=== PATIENT | female | born 1995 | race Caucasian/White ===

== ENCOUNTER 2025-02-12 17:03 | Emergency (ER) | payer SELFPAY ==
--- OUTSIDE RECORDS SUMMARY | 2025-02-12 17:06 | XMS_ITS | Clinical Summary ---
Author Organization [facility] Address [address] [place] [address] Care Team Providers Care Marketing Project Specialist Name Role Phone Lynne Jarquin Primary Care Provider Jose Elias Cochran MD Unavailable + [phone] Allergies No known active allergies Medications No known medications Active Problems Problem Noted Date Diagnosed Date Cyst of right Bartholin's gland 03/17/2023 Surgical History Surgery Date Site/Laterality Comments TONSILLECTOMY Medical History Medical History Date Comments Supervision of high-risk High-risk - (Added by TW Conv) Maternal care for (suspected ) abnormality and damage, unspecified, not applicable or unspecified abnormality affecting management of mother, antepartum condition or complication - (Added by TW Conv) Anxiety Social History Tobacco Use Types Packs/Day Years Used Date Smoking Tobacco: Never Smokeless Tobacco: Never Tobacco Cessation:Counseling Given: Not Answered AUDIT-C Answer Date Recorded Frequency of Alcohol Consumption Not on file 03/19/2023 Q2: How many drinks containi ng alcohol do you have on a typical day when you are drinking? Patient does not drink Frequency of Binge Drinking Not on file 03/09 Personal Safety Answer Date Recorded Have you ever been in or are you currently in a harmful physical or emotional relationship or is someone making you feel afraid or unsafe? Denies 03/27/2023 Comments No Sex and Gender Information Value Date Recorded Sex Assigned at Not on file Legal Sex Female 7:22 PM BEEF RIBBER Gender Identity Not on file Sexual Orientation Not on file Last Filed Vital Signs Vital Sign Reading Time Taken Comments Blood Pressure 109/60 03/27/2023 10:08 AM BEEF RIBBER Pulse 52 03/27/2023 10:08 AM BEEF RIBBER Temperature 36.3 C (97.4 F) 03/27/2023 9:40 AM BEEF RIBBER Respiratory Rate 20 03/27/2023 10:0 8 AM BEEF RIBBER Oxygen Saturation 99% 03/27/2023 10: 08 AM BEEF RIBBER Inhaled Oxygen Concentration - - Weight 110.7 kg (244 lb 0.8 oz) 03/27/2023 6:42 AM BEEF RIBBER Height 160 cm (5' 3) 03/27/2023 6:42 AM BEEF RIBBER Body Mass Index 43.23 03/27/2023 6:42 AM BEEF RIBBER Plan of Treatment Health Maintenance Due Date Last Done Comments Cervical Cancer Screening 1994 Depression Screening 1994 Hepatitis C Screening 1994 Varicella Vaccines (2 of 2 - 2-dose childhood series) 1998 11/27/1997 Regular Well Visit/Exam 18-64 2012 DTaP/Tdap/Td Vaccine (7 - Td or Tdap) 10/20/2019 10/19/2009, 10/23/1999, 09/26/1997, Additional history exists HPV Vaccines (1 - 3-dose SCDM series) 2021 Covid-19 Vaccine (2024- season) 2024 11/26/2020, 11/05/2020 Influenza Vaccine (#1) 2024 Hepatitis B Screening Completed 11/06/1995 , 01/13/1995, 1994 Pneumococcal vaccine <65 Aged Out No longer eligible based on patient's age to complete this topic Insurance [employer] OOS Care Teams Marketing Project Specialist Relationship Specialty Start Date End Date Lynne Jarquin PCP - General 09/25/06 Jose Elias Rivera MD [address] [place] [address] [place] [address] Consulting Physician Obstetrics and Gynecology 03/27/23
--- OUTSIDE RECORDS SUMMARY | 2025-02-12 17:06 | XMS_ITS | Data Portability ---
Author Organization [facility] Address [id number] [place] [id number] Care Team Providers Care Financing Analyst Name Role Phone ROLANDO ROSARIO Referring Provider [phone] Assessment No assessment recorded. Plan of Treatment Reminders Order Date Submit Date Provider Last Modified By Organization Details Last Modified Time Details Appointments None record ed. Lab None record ed. Referral None record ed. Procedures None record ed. Surgeries None record ed. Imaging None record ed. Medication Orders None record ed. Patient TargetsNo targets recorded. Patient InstructionsNo instructions recorded. Reason for Referral None Reported. Procedures Surgical History Date Name Laterality Status Provider Name and Address Organization Details Recorded Time 10/21/2016 Sleep Study completed Tucker Dickson [address] [facility] [address], [place], [address], [facility] 11/09/2016 20:37:26 Imaging Results None recorded. Procedure Notes None recorded. Medical Equipment None Reported. Vitals None Recorded Social History None recorded. Functional Status None recorded. Mental Status None recorded. Family History Nothing Reported. Medical History No medical history recorded. Gynecological HistoryNo gynecological history recorded. Obstetrics History GPAL:G 0 P 0 0 0 0 Past Encounters Encounter ID Performer Location Encounter Start Date Encounter Closed Date Diagnosis/Indication Diagnosis SNOMED-CT Code Diagnosis ICD10 Code Diagnosis IMO Codes Diagnosis Note [id number] Tucker Dickson [facility] 11) [id number] [facility] [address] [place] [address] 10/21/2016 21:24:03 10/21/2016 21:28:21 Obstructive sleep apnea of adult 7492794362 103 G47.33 Health Concerns Section Related Observation LastModified by Organization Detai ls LastModified Time None Recorded Concern Status LastModified by Organization Details LastModified Time None Recorded Advance Directives Directive None Recorded Payers Insurance Date Sequence Insurance Name Policy Number Policy Parsons Covered Member ID Parsons Member ID Guarantor Name 10/17/2016 1 [employer] [id number] Alexandra Daniels [id number] Alexandra Daniels OBGyn Episode No OBEpisode recorded.
--- OUTSIDE RECORDS SUMMARY | 2025-02-12 17:06 | XMS_ITS | Clinical Summary ---
Author Organization [facility] Address [address] [place] [address] Phone Care Team Providers Care System Planning Engineer Name Role Phone Juan Murguia MD Primary Care Provider [phone] Allergies No known active allergies Medications fluticasone (FLONASE) 50 MCG/ACT SuspensionIndicat ions:UARS (upper airway resistance syndrome),Hypertr ophy of inferior nasal turbinate,PNAR (perennial non-allergic rhinitis) 2 sprays in each nostril once daily (best after shower/ bath) 3 Bottle 3 7 Active Additional Information Patient not taking.Reported on 10/06/2022 FLUoxetine (PROZAC) 40 MG CapsuleIndication s:Depression, unspecified depression type,Disturbed concentration Take 1 Cap by mouth daily. 90 Cap 8 Active Additional Information Patient not taking.Reported on 10/06/2022 FLUoxetine (PROZAC) 20 MG CapsuleIndication s:Depression, unspecified depression type,Disturbed concentration TAKE 1 CAPSULE BY MOUTH DAILY 30 Cap 9 Active Additional Information Patient not taking.Reported on 10/06/2022 naproxen (NAPROSYN) 500 MG Tablet Take 1 Tab by mouth 2 times daily (with meals). 30 Tab 0 Active Additional Information Patient not taking.Reported on 10/06/2022 Active Problems Problem Noted Date Diagnosed Date Ingrown right greater toenail 09/10/2017 Pain of right great toe 09/10/2017 Hypertrophy of inferior nasal turbinate 11/29/19 17 PNAR (perennial non-allergic rhinitis) 7 Laryngopharyngeal reflux 11/28/2016 Chronic adenotonsillitis 11/28/2016 Depression 11/06/2016 Anxiety 11/06/2016 Hypersomnia 11/05/2016 UARS (upper airway resistance syndrome) 11/06/19 17 Resolved Problems Problem Noted Date Diagnosed Date Resolved Date Tonsillar and adenoid hypertrophy 11/06/2016 12/23/2016 Tonsillith 11/06/2016 12/23/2016 Immunizations Immunization Administration Dates Next Due Covid-19, Mrna, Lnp-s, Pf, 3 0 Mcg/0.3 Ml Dose ([employer]) 11/26/2020,11/05/2020 DTAP VACCINE, UNSPECIFIED FORMULATION ,09/26/1997,11/06/1995,1995,01/13/1995 Hepatitis B Vaccine, Pediatric/adolescent 11/06/1995,01/13/1995,1994 Hib Vaccine,unspecified Formulation 09/07,11/06/1995,04/28/1995,1994 Inactivated Polio Vaccine 10/23/1999 MMR Vaccine 10/23/1999,10/13/1999,09/26/1997 OPV 11/06/1995,04/28/1995,01/13/1995 TDAP Vaccine 10/19/2009 Varicella Vaccine Live 11/27/1997 Family History Relation Name Status Comments Father Alive Mother Alive Social History Tobacco Use Types Packs/Day Years Used Date Smoking Tobacco: Never Smokeless Tobacco: Never Tobacco Cessation:Counseling Given: No Alcohol Use Standard Drinks/Week Comments No 0 (1 standard drink = 0.6 oz pur e alcohol) Sexually Active Control Partners Comments Yes Male Condom Comments No Sex and Gender Information Value Date Recorded Sex Assigned at Not on file Legal Sex Female 10:38 PM CDT Gender Identity Not on file Sexual Orientation Not on file 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 Not on file Not on file Not on file Last Filed Vital Signs Vital Sign Reading Time Taken Comments Blood Pressure 124/78 10/08/2022 4:28 PM CDT Pulse 58 10/08/2022 4:28 PM CDT Temperature 36.7 C (98 F) 10/08/2022 4:28 PM CDT Respiratory Rate 20 10/08/2022 4:28 PM CDT Oxygen Saturation 99% 10/08/2022 4:28 PM CDT Inhaled Oxygen Concentration - - Weight 114.3 kg (252 lb) 10/08/2022 4:28 PM CDT Height 160 cm (5' 3) 10/08/2022 4:28 PM CDT Body Mass Index 44.64 10/08/2022 4:28 PM CDT Plan of Treatment Health Maintenance Due Date Last Done Comments Hepatitis C Virus (HCV) Screening 1994 Varicella Immunization (2 of 2 - 2-dose childhood series) 1998 11/27/1997 Pap Smear 09/21/2015 DTaP/Tdap/Td Immunization (7 - Td or Tdap) 10/20/2019 10/19/2009, 10/23/1999, 09/26/1997, Additional history exists Human Papillomavirus (HPV) Immunization (1 - 3-dose SCDM series) 2021 Cervical Cancer Screening (CCS) 2024 HPV/Cotest 2024 Influenza Immunization (#1) 2024 SARS-COV-2 Immunization ( season) 2024 11/26/2020, 11/05/2020 Respiratory Syncytial Virus (RSV) Immunization (Adult) (1 - 1-dose 75+ series) 2069 Hepatitis B Immunization Completed 996, 01/13/1995, 1994 Meningococcal Immunization (ACWY) Aged Out No longer eligible based on patient's age to complete this topic Pneumococcal Immunization Combined Aged Out No longer eligible based on patient's age to complete this topic Rotavirus Immunization Aged Out No lo nger eligible based on patient's age to complete this topic Care Teams System Planning Engineer Relationship Specialty Start Date End Date Juan Murguia MD [address] [place] [address] PCP - General Family Medicine 03/16/23
[2025-02-12 17:09] VITALS: BP 135/72; PULSE 73; RESP 16; TEMP 37.3; O2SAT 100
--- NOTE | 2025-02-12 17:16 | ED_ITS ---
HPI - Female Genitourinary General Chief complaint: Urogenital-Female Stated complaint: Urinary Problem Time Seen by Provider: 02/12/25 17:18 Source: patient and RN notes reviewed Mode of arrival: ambulatory Limitations: no limitations History of Present Illness HPI Narrative: 29-year-old female presented for complaint of burning with urination and urinary pressure. Onset this morning. She took azo with some relief in the pressure. Denies hematuria, nausea, vomiting, abdominal pain, flank pain, constipation, diarrhea, fevers or chills. Related Data Allergies Allergy/AdvReac Type Severity Reaction Status Date / Time No Known Drug Allergies Allergy Unknown Unknown Verified 02/12/25 17:13 Review of Systems Review of Systems: CONSTITUTIONAL: Denies body aches, fever, chills, or sweats. CARDIOVASCULAR: Denies chest pain, palpitations, or edema. RESPIRATORY: Denies cough or dyspnea. GASTROINTESTINAL: Denies abdominal pain, nausea, vomiting, or diarrhea. GENITOURINARY: Reports dysuria, frequency, urgency, hematuria, denies flank pain, discharge SKIN: Denies rash, itching, or wounds. MUSCULOSKELETAL: Denies back pain or myalgia. PMFSH Comments At time of signature, I have reviewed and agree with nursing past medical, surgical, social and family history unless otherwise noted. Please see nursing chart for further information. There is no relevant family history pertinent to the presenting complaint Exam Narrative: GENERAL: Well-appearing and in no acute distress. ENT: Mucous membranes pink and moist. NECK: Normal AROM. Supple. CHEST: No respiratory distress. Clear to auscultation. HEART: Regular rate and rhythm. ABDOMEN: Soft, nontender, nondistended, normal active bowel sounds. No CVA tenderness SKIN: Warm, dry, no rash. NEURO: No focal deficits. Alert and oriented x3. Gait steady. PSYCH: Normal affect. Course Course Level of Care: Express Care Visit Vital Signs Vital signs: Vital Signs Temperature 99.2 F 02/12/25 17:09 Pulse Rate 73 02/12/25 17:09 Respiratory Rate 16 02/12/25 17:09 Blood Pressure 135/72 02/12/25 17:09 Pulse Oximetry 100 02/12/25 17:09 Oxygen Delivery Room Air 02/12/25 17:09 Temperature 99.2 F 02/12/25 17:09 Pulse Rate 73 02/12/25 17:09 Respiratory Rate 16 02/12/25 17:09 Blood Pressure 135/72 02/12/25 17:09 Pulse Oximetry 100 02/12/25 17:09 Oxygen Delivery Room Air 02/12/25 17:09 MDM MDM Narrative Medical decision making narrative: Discussed physical exam findings. Advised supportive measures and signs/symptoms to go to the ER. Pt is appropriate for outpt treatment and f/u. Differential Diagnosis Differential Diagnosis: dysuria, hematuria, nephrolithiasis, UTI, cystitis Discharge Plan Discharge Clinical Impression: Urinary tract infection Qualifiers: Urinary tract infection type: site unspecified Hematuria presence: with hematuria Qualified Code(s): N39.0 - Urinary tract infection, site not specified Patient Disposition: Home Condition: Stable Instructions: Antibiotic Form, Urinary Tract Infection in Women (ED) Additional Instructions: Take the antibiotic as prescribed The urine will be sent of for a culture to identify what type of bacteria is causing your infection. If the culture shows that the antibiotic will not get rid of your infection, you will be notified and a new antibiotic will be called in for you. Increase water intake you will need to follow up with your PCP, call to schedule an appointment. Go to the ER for any worsening symptoms or concerns Patient Language: Mauritanian Prescriptions: New nitrofurantoin monohyd/m-cryst [Macrobid] 100 mg capsule 100 mg PO Q12H 5 Days Qty: 10 0RF Rx Instructions: must administer with a meal/food Follow-up/Referrals: PHYSICIAN,MANAGER BRANCH [Primary Care Provider, Internal Medicine] Time of Disposition: 17:22
== END 2025-02-12 17:25 | disposition home or self-care (01) ==
PROVIDERS: Emergency Provider Nurse Practitioner Family
DX: N39.0 Urinary tract infection, site not specified (principal)
CPT/HCPCS: 87086; 99203; G0463